=== PATIENT | female | born 1990 | race American Indian/Alaskan Native ===

== ENCOUNTER 2019-10-26 06:23 | Day surgery (SDC) | payer MEDICAID ==
[~2019-10-26] VITALS: Ht 30.5 cm; Wt 0.5 kg
[2019-10-26] MEDS ORDERED: LIDOCAINE 2%HCL (LOCAL ANESTH.) INJ 20ML MDV ONE ×2 (07:48→08:18)
[2019-10-26] MEDS ORDERED: fentaNYL CITRATE 100 MCG/2 ML VL ONE (07:51)
[2019-10-26] MEDS ORDERED: MIDAZOLAM HCL 1MG/1ML-2 ML VIAL ONE (07:51)
[2019-10-26] MEDS ORDERED: diphenhdrAMINE HCL 50 MG/1 ML VL ONE (07:52)
[2019-10-26] MEDS ORDERED: ONDANSETRON HCL 4 MG/2 ML VIAL IV PRN (10:00)
[2019-10-26] MEDS ORDERED: HYDROcodone-ACET 5/325MG TAB PO PRN (10:00)
[2019-10-26] MEDS ORDERED: ACETAMINOPHEN 500 MG TAB PO PRN (10:00)
== END 2019-10-26 12:05 | disposition home or self-care (01) ==
LOC: CATH 06:23
PROVIDERS: ATTEND Specialist
DX: R00.0 Tachycardia, unspecified (principal); Z11.59 Encounter for screening for other viral diseases; Z91.040 Latex allergy status; Z98.890 Other specified postprocedural states; Z79.899 Other long term (current) drug therapy
CPT/HCPCS: 93619; C1730; C1894; J1644; J2250; J3010; J7030; U0003; 99152; 99153